=== PATIENT | female | born 1940 | race Caucasian/White ===

== ENCOUNTER 2020-06-25 06:28 | Inpatient (IN) | payer MEDICARE, BC ==
[2020-06-25] VITALS (9 sets, daily range): BP systolic 120–180; BP diastolic 58–108
[~2020-06-25] VITALS: Ht 154.9 cm; Wt 67.9 kg
[2020-06-25] MEDS ORDERED: ceFAZolin 2gm in dextrose, iso 50 ML IV ONE (07:00)
[2020-06-25] MEDS ORDERED: ceFAZolin inj. 2,000 MG in normal saline soln 50 ML IV ONE (07:00)
[2020-06-25] MEDS ORDERED: cefazolin/dext.iso 2gm/50ml 50 ML IV ONE (07:00)
[2020-06-25] MEDS ORDERED: GABA-534 PO (07:13)
[2020-06-25] MEDS ORDERED: LEVO175T7 PO (07:13)
[2020-06-25] MEDS ORDERED: PROBIOTIC (07:13)
[2020-06-25] MEDS ORDERED: VITAMIN D3 (07:13)
[2020-06-25] MEDS ORDERED: TOFA5TAB PO (07:13)
[2020-06-25] MEDS ORDERED: VITAMIN C (07:13)
[2020-06-25] MEDS ORDERED: METO25TA6 PO (07:13)
[2020-06-25] MEDS ORDERED: VITAMIN E (07:13)
[2020-06-25] MEDS ORDERED: LISI10TA27 PO (07:13)
[2020-06-25] MEDS ORDERED: PANT40TA54 PO (07:13)
[2020-06-25] MEDS ORDERED: tylenol (07:13)
[2020-06-25 07:45] LABS: BASOPHILS % (AUTO) 0.4 % (0-1); EOSINOPHILS # (AUTO) 0.1 X10'3 (0-0.9); EOSINOPHILS % (AUTO) 2.6 % (0-6); HEMATOCRIT 35.7 % (35.0-45.0); HEMOGLOBIN 12.1 g/dl (12.0-16.0); LYMPHOCYTES # (AUTO) 1.6 X10'3 (1.1-4.8); LYMPHOCYTES % (AUTO) 35.7 % (21-51); MEAN CORPUSCULAR VOLUME 91.2 FL (78-98); MEAN PLATELET VOLUME 7.9 FL (7.4-10.4); MONOCYTES # (AUTO) 0.6 X10'3 (0-0.9); MONOCYTES % (AUTO) 12.9 % (2-12); NEUTROPHILS # (AUTO) 2.1 X10'3 (1.8-7.7); NEUTROPHILS % (AUTO) 48.4 % (42-75); PLATELET COUNT 226 X10'3 (140-440); RED BLOOD COUNT 3.92 X10'6 (4.20-5.60); RED CELL DISTRIBUTION WIDTH 13.9 % (11.5-14.5); WHITE BLOOD COUNT 4.4 X10'3 (4.5-11.0)
[2020-06-25] MEDS ORDERED: epiNEPHrine 0.1mg/ml 10ml syringe ONE (08:00)
[2020-06-25] MEDS: normal saline 1000ml 1,000 ML IV PRN ×2 (08:01→11:29)
[2020-06-25] MEDS ORDERED: diphenhydrAMINE 50 mg/ml inj ONE (08:16)
[2020-06-25] MEDS ORDERED: LIDOcaine 1%/PF 5ML 10 MG/ML VIAL ONE (08:17)
[2020-06-25] MEDS ORDERED: midazolam 1 mg/ML 2ml injection ONE ×2 (08:17→09:09)
[2020-06-25] MEDS ORDERED: fentaNYL/PF 50MCG/1 ML 2ML syringe ONE ×2 (08:17→09:09)
[2020-06-25] MEDS ORDERED: iohexol 300 MG/1 ML 50ml polymer ONE (08:17)
--- NOTE | 2020-06-25 08:30 | NUR ---
Pt left unit for procedure.
[2020-06-25] MEDS ORDERED: naloxone 0.4 mg/ml inj ONE (09:24)
[2020-06-25] MEDS ORDERED: flumazenil 0.1 mg/ml inj. IV ONE (09:27)
[2020-06-25 09:58] LABS: ABG BASE EXCESS -1.6 mmol/L (-2.0-2.0); ABG HCO3 24.2 mmol/L (22.0-26.0); ABG PCO2 (T) 44.9 mmHg (32.0-45.0); ABG PO2 (T) 86.4 mmHg (75.0-100.0); ALLEN'S TEST POSITIVE; FCOHb 0.3 % (0.0-3.9); FLOW 2 L/min; FMetHb 0.3 % (0.0-1.5); FO2Hb 95.4 % (94-97); TOTAL HEMOGLOBIN 12.7 G/dl (12.0-16.0)
--- NOTE | 2020-06-25 10:22 | NUR ---
0925 code blue called for pt. in angio suite. Apparently pt. stopped breathing but did not lose a pulse, however, angio RN stated compressions were started.Pt. received Fentanyl, Versed and Benadryl for procedure per code report. Received Narcan and Romazicon and developed ROSC at 0930. Pt. to room 2041. VSS. at bedside. Labs obtained, MRSA swab obtained. Small skin tear noted on upper back. Foam dressing applied to sacrum per protocol. Dr. Amezquita saw pt. briefly and will put orders in. Report given to Dulce Mari RN.
[2020-06-25] MEDS ORDERED: ondansetron/PF 4mg/2ml inj IV PRN (10:50)
[2020-06-25] MEDS ORDERED: potassium Cl 20 mEq SR tablet PO PRN ×2 (10:50)
[2020-06-25] MEDS ORDERED: HYDROcodone/acetaminophen 5mg/325mg tablet PO PRN (10:50)
[2020-06-25] MEDS ORDERED: magnesium hydroxide 30ml (MOM) UD suspension PO PRN (10:50)
[2020-06-25] MEDS ORDERED: acetaminophen 325mg tablet PO PRN ×2 (10:50)
[2020-06-25] MEDS ORDERED: normal saline 1000ml 1,000 ML IV SCH (10:50)
[2020-06-25] MEDS ORDERED: morphine 2 MG/ML inj. syringe IV PRN (10:50)
[2020-06-25] MEDS ORDERED: morphine 4 MG/ML inj SYRINge IV PRN (10:50)
[2020-06-25 11:20] LABS: ANION GAP 9 (8-16); BILIRUBIN,TOTAL 0.2 MG/DL (0.1-1.0); BLOOD UREA NITROGEN 14 MG/DL (7-18); BUN/CREATININE RATIO 16.9 (6.6-38.0); CALCIUM 8.6 MG/DL (8.5-10.1); CHLORIDE 107 MMOL/L (99-107); CREATININE 0.83 MG/DL (0.40-0.90); GLUCOSE 148 MG/DL (70-104); MAGNESIUM 1.4 MG/DL (1.5-2.4); PHOSPHORUS 3.3 MG/DL (2.3-4.5); POTASSIUM 4.6 MMOL/L (3.5-5.1); SODIUM 142 MMOL/L (135-145); TOTAL CARBON DIOXIDE 26.2 MMOL/L (24-32); TOTAL PROTEIN 6.7 G/DL (6.4-8.2); eGFR 66 ML/MIN
[2020-06-25 11:21] LABS: ALANINE AMINOTRANSFERASE 44 U/L (12-78); ALBUMIN 3.2 G/DL (3.4-5.0); ALBUMIN/GLOBULIN RATIO 0.9 (1.1-1.5); ALKALINE PHOSPHATASE 53 IU/L (46-116); ASPARTATE AMINO TRANSFERASE 40 U/L (10-37)
[2020-06-25] MEDS ORDERED: NITR-79 PO (12:41)
[2020-06-25] MEDS ORDERED: docusate sod 100mg capsule PO SCH (20:00)
[2020-06-25] MEDS ORDERED: heparin, porcine 5000 units/ml vial SQ SCH (20:00)
--- NOTE | 2020-06-26 15:14 | NUR ---
CASE MANAGEMENT DISCHARGE FOLLOW UP: Unable to contact pt via her telephone number, t/c to pt's , Sean. He reports that pt is doing pretty good, has decreased appetite and c/o sore chest; denies CP, SOB. Verbalizes understanding of s/sx requiring further evaluation/emergent assistance. He states that when he gets home he will make sure that his has a f/u appt scheduled with her PCP. He states no further questions/concerns at this time.
== END 2020-06-25 16:30 | disposition home or self-care (01) | DRG 477 ==
LOC: SSTAY O 06:28 → UNDOADMIN 09:34 → ICU 2S 09:34 → UNDODISIN 16:30
PROVIDERS: ADMIT Internal Medicine Critical Care Medicine; ATTEND Radiology Diagnostic Radiology
PROC: 0QB03ZX Excision of Lumbar Vertebra, Percutaneous Approach, Diagnostic (ICD-10-PCS; principal; 2020-06-25)
PROC: 5A12012 Performance of Cardiac Output, Single, Manual (ICD-10-PCS; 2020-06-25)
DX: M48.56XA Collapsed vertebra, not elsewhere classified, lumbar region, initial encounter for fracture (principal); J96.90 Respiratory failure, unspecified, unspecified whether with hypoxia or hypercapnia; I10 Essential (primary) hypertension; M19.90 Unspecified osteoarthritis, unspecified site; R55 Syncope and collapse; T42.4X5A Adverse effect of benzodiazepines, initial encounter; Z88.2 Allergy status to sulfonamides; Z79.899 Other long term (current) drug therapy; Y92.89 Other specified places as the place of occurrence of the external cause
CPT/HCPCS: 22514; 36415; 36600; 80053; 82803; 83605; 83735; 84100; 85018; 85025; 85610; 87081; 87635; 92950; 93005; 93880; 99152; 99153; C1713; G0378; J0171; J1200; J2250; J2310; J3010; J3490; J7030; Q9967